=== PATIENT | male | born 1990 | race Caucasian/White ===

== ENCOUNTER 2016-05-20 11:51 | Day surgery (SDC) | payer BC ==
[~2016-05-20] VITALS: Ht 175.3 cm; Wt 148.4 kg
[2016-05-20 12:58] VITALS: Ht 175.3 cm; Wt 148.4 kg
[2016-05-20] MEDS ORDERED: METO5TAB2 PO (13:06)
[2016-05-20] MEDS ORDERED: ANUHCSUP PR (13:06)
[2016-05-20] MEDS ORDERED: PANT40TA4 PO (13:06)
[2016-05-20] MEDS ORDERED: MESA500C PO (13:06)
[2016-05-20 13:15] VITALS: BP 146/95; PULSE 69; RESP 18
[2016-05-20] MEDS ORDERED: MIDAZOLAM 1 MG/ML 2 ML INJ ONE ×2 (13:23)
[2016-05-20] MEDS ORDERED: FENTAnyl 50 MCG/ML VIAL ONE (13:23)
[2016-05-20] MEDS ORDERED: PROPOFOL 40 ML ONE (13:23)
[2016-05-20 14:40] VITALS: BP 143/101; PULSE 78; RESP 18
--- NOTE | 2016-05-20 14:46 | GILP ---
DATE OF PROCEDURE: 05/20/2016 PROCEDURE: Colonoscopy with biopsies. BRIEF HISTORY AND INDICATIONS: The patient is being evaluated for history of Crohn's disease. PREMEDICATION: Monitored anesthesia care by anesthesiologist. SURGEON: Dipak Duncan MD INSTRUMENT USED: Olympus colonoscope. PREPARATION: Adequate. TECHNIQUE: After informed consent, with the patient/relatives understanding the procedure, its indic ations potential risks and complications, including but not limited to: allergic reaction, bleeding, perforation, infection, missed lesions and after all pertinent questions were answered to the patie nt's satisfaction, the patient/relatives signed the witnessed informed consent. Following this, premedication was administered slowly IV push by under careful cardiovascular and re spiratory monitoring with pulse oximetry, automatic blood pressure and security monitor. Once the sedativ e effect was achieved, the patient was placed in the left lateral decubitus position, digital rectal examination was performed. The colonoscope was then introduced and advanced under visual control th roughout all segments of the colon including: the rectum, sigmoid, descending colon, splenic flexure , transverse colon, hepatic flexure, ascending colon and finally reaching the cecum which was clearl y identified by transillumination, finger indentation and the ileocecal valve. Careful examination o f the mucosa of the lower gastrointestinal tract both on insertion as well as withdrawal of the inst rument disclosed the following findings: Rectal Examination: No evidence of perirectal disease, no masses. Colonic Mucosa: The colonic mucosa entirely unremarkable throughout. The ileocecal valve was clear ly identified and appears unremarkable. The terminal ileum was briefly entered and appears unremark able as well. Random biopsies were obtained on the right and left side of the colon to rule out anabel roscopic colitis. The patient tolerated procedure. No additional abnormalities are noted with exce ption of moderate sized internal hemorrhoids. The instrument was then withdrawn, the patient tolerated the procedure well and was transferred out of the Endoscopy Suite awake and in good condition to continue recovery under observation. IMPRESSION: 1. Normal colonic mucosa to cecum. Random biopsies obtained, rule out microscopic colitis. 2. Moderate size internal hemorrhoids. PLAN: The patient will be continued on present regimen. Pathology will be reviewed as soon as avai lable. Further recommendation will depend on the patient's clinical course as well as review of bio psies. Dictated By: DIPAK DUNCAN MS/MEGHA Conf#: [id number] DID#: [id number] CC: DIPAK DUNCAN;*End*
--- NOTE | 2016-05-20 14:52 | GILP ---
DATE OF PROCEDURE: 05/20/2016 NAME OF PROCEDURE: Esophagogastroduodenoscopy with biopsies. SURGEON: Ramesh Duncan MD PREOPERATIVE DIAGNOSIS: POSTOPERATIVE DIAGNOSIS: BRIEF HISTORY AND INDICATIONS: The patient is being evaluated for complaints of dyspepsia. PREMEDICATION: Monitored anesthesia care by anesthesiologist. INSTRUMENT USED: Olympus panendoscope. TECHNIQUE: After informed consent, with the patient/relatives understanding the procedure, its indic ations, potential risks and complications, including but not limited to: allergic reaction, bleeding , perforation or infection, and after all pertinent questions were answered to the patient's satisfa ction, the patient/relatives signed witnessed informed consent. Following this, premedication was administered slowly IV push under careful cardiovascular and respi ratory monitoring with pulse oximetry, automatic blood pressure and teletypesetter monitor. Once the sedative effect was achieved the patient was place in the left lateral decubitus, the panen doscope was introduced and advanced under visual control. Careful examination of the upper gastrointestinal tract, both on insertion as well as withdrawal of the instrument disclosed the following findings: ESOPHAGUS: The distal esophagus shows significant erythema and edema of the mucosa. STOMACH: Upon entrance to the stomach air was insufflated, the gastric jaimes distended normally. Th e mucosa of the fundus, body, and antrum of the stomach was carefully examined and showed erythema a nd edema of the mucosa of a moderate degree. Biopsies were obtained to rule out H pylori infection. PYLORUS: The pylorus appears patent and within normal limits, with no evidence of gastric outlet ob struction. DUODENUM: The duodenal mucosa was carefully examined in the duodenal bulb as well as the second por tion of the duodenum and appears unremarkable with no evidence of duodenitis, ulcer or neoplasm. The instrument was then withdrawn, the patient tolerated the procedure well and was transfer out of the endoscopy suite awake, and in good condition to continue recovery under observation IMPRESSION: 1. Distal erosive esophagitis. 2. Gastritis, rule out Helicobacter pylori infection. Biopsies were obtained. PLAN: The patient will follow up as an outpatient. Will be continued on PPIs. Further recommendat ion will depend on his clinical course as well as review of biopsies. Dictated By: RAMESH DUNCAN MS/MEGHA Conf#: [id number] DID#: [id number]
== END 2016-05-20 15:40 | disposition home or self-care (01) ==
LOC: GIL 11:51
PROVIDERS: ATTEND Internal Medicine Gastroenterology
DX: K20.8 Other esophagitis (principal); K29.70 Gastritis, unspecified, without bleeding; K64.8 Other hemorrhoids; E66.01 Morbid (severe) obesity due to excess calories; Z68.42 Body mass index [BMI] 45.0-49.9, adult
CPT/HCPCS: 43239; 45380; 88305; 88312; J2250; J3010; Z7610